=== PATIENT | male | born 1995 | race Caucasian/White ===

== ENCOUNTER 2024-07-25 14:43 | Emergency (ER) | payer OTHER, SELFPAY ==
[2024-07-25 14:45] VITALS: BP 135/85; PULSE 59; RESP 16; TEMP 36.6; O2SAT 100; BMI 21.9
--- NOTE | 2024-07-25 16:03 | ED.UPPEXIN ---
HPI - Extremity Injury (Upper) <Samantha Castle PA-C - Last Filed: 07/25/24 19:51> General Chief Complaint: Extremity Injury, Upper Stated Complaint: shoulder/back injury at work Time Seen by Provider: 07/25/24 16:03 Source: patient Mode of arrival: Ambulatory History of Present Illness HPI narrative: Mr. Gipson is a pleasant 29-year-old male with no reported past medical history who presents to the emergency department for bilateral shoulder pain after lifting overhead at work earlier today. Patient reports that he works in construction and was lifting at least 80 lb concrete over his head for 6 minutes when his shoulders gave out on him. Patient did not drop cement on himself or fall. However he has had bilateral anterior shoulder pain and bilateral scapular pain since this occurred at 11:00 a.m. this morning. Patient states the pain is also radiating down down the medial aspect of his right arm and this area feels intermittently numb. He denies any weakness in his arms or hands. He has pain when elevating his arms above 90?. He denies any neck or back pain. No difficulty ambulating. No chest pain or shortness of breath. He took a dose of ibuprofen at 11:00 a.m. this morning which did not not resolve the patent. Related Data Previous Rx's Medication Instructions Recorded cyclobenzaprine 5 mg tablet 5 mg PO TID PRN muscle spasm #12 07/25/24 tabs lidocaine 5 % topical patch 1 patch topical DAILY #15 ea 07/25/24 (Lidoderm) methylprednisolone 4 mg tablets in See Rx Instructions PO .COMPLEX 07/25/24 a dose pack (Medrol (Dashawn)) #21 ea Allergies Allergy/AdvReac Type Severity Reaction Status Date / Time diphenhydramine AdvReac Hallucinati Verified 07/25/24 15:03 [From Benadbebal] ng Review of Systems <Samantha Castle PA-C - Last Filed: 07/25/24 19:51> Review of Systems ROS Unobtainable: All systems reviewed & are unremarkable except as noted in HPI and below Patient History <Samantha Castle PA-C - Last Filed: 07/25/24 19:51> Social History Smoking Status: Current some day smoker Smoking Status: Current some day smoker alcohol intake frequency: holidays/special occasions only Substance Use Type: does not use Exam <Samantha Castle PA-C - Last Filed: 07/25/24 19:51> Narrative Exam Narrative: GENERAL: 29 year old patient appears stated age. Well-developed patient, in no acute distress. HEAD: Atraumatic. Normocephalic. EYES: Extraocular motions intact. No scleral icterus. No injection or drainage. ENT: Nose without bleeding, purulent drainage. Airway patent. NECK: Trachea midline. Cervical ROM intact. No midline cervical pain. CARDIOVASCULAR: Regular rate and rhythm. RESPIRATORY: ?Nonlabored respirations. ?Speaking in clear, full sentences. ?Clear to auscultation. Breath sounds equal bilaterally. No wheezes, rales, or rhonchi. ? EXTREMITIES: Tenderness to palpation of bilateral anterior shoulders and posterior superior scapula. Pain with abduction of shoulders greater than 90?. No deformities. Bilateral upper extremity strength intact. Sensation intact in the distribution of the median, radial, ulnar nerves bilaterally. Strong radial pulses. BACK: Nontender without deformity or crepitance. No flank tenderness. NEURO: AOx3. ?Clear speech. ?Moves all 4 extremities appropriately. Ambulates steady. Subjective numbness in distribution of right arm C8 however sensation to light touch is still intact. SKIN: No rash or erythema of visible areas Initial Vital Signs Initial Vital Signs: Vital Signs Temperature 97.9 F 07/25/24 14:45 Pulse Rate 59 L 07/25/24 14:45 Respiratory Rate 16 07/25/24 14:45 Blood Pressure 135/85 07/25/24 14:45 Pulse Oximetry 100 07/25/24 14:45 Oxygen Delivery Method Room Air 07/25/24 14:45 <Lashell Menendez MD - Last Filed: 07/26/24 08:27> Initial Vital Signs Initial Vital Signs: Vital Signs Temperature 97.9 F 07/25/24 14:45 Pulse Rate 59 L 07/25/24 14:45 Respiratory Rate 16 07/25/24 14:45 Blood Pressure 135/85 07/25/24 14:45 Pulse Oximetry 100 07/25/24 14:45 Oxygen Delivery Method Room Air 07/25/24 14:45 Course <Samantha Castle PA-C - Last Filed: 07/25/24 19:51> Orders Ordered: Discontinued Medications Acetaminophen (Acetaminophen 325 Mg Tablet) 975 mg PO NOW ONE Stop: 07/25/24 16:42 Last Admin: 07/25/24 16:46 Dose: 975 mg Documented By: LEAH Cyclobenzaprine HCl (Cyclobenzaprine 10 Mg Prepack) 1 bottle MISC DIRECTED ONE Stop: 07/25/24 19:02 Ibuprofen (Ibuprofen 400 Mg Tablet) 400 mg PO NOW ONE Stop: 07/25/24 16:42 Last Admin: 07/25/24 16:45 Dose: 400 mg Documented By: LEAH Vital Signs Vital signs: Vital Signs - 8 hr 07/25/24 14:45 07/25/24 18:18 Temperature 97.9 F Pulse Rate 59 L 59 L Respiratory Rate 16 16 Blood Pressure 135/85 117/70 Pulse Oximetry 100 100 Oxygen Delivery Method Room Air <Lashell Menendez MD - Last Filed: 07/26/24 08:27> Orders Ordered: Discontinued Medications Acetaminophen (Acetaminophen 325 Mg Tablet) 975 mg PO NOW ONE Stop: 07/25/24 16:42 Last Admin: 07/25/24 16:46 Dose: 975 mg Documented By: LEAH Cyclobenzaprine HCl (Cyclobenzaprine 10 Mg Prepack) 1 bottle MISC DIRECTED ONE Stop: 07/25/24 19:02 Ibuprofen (Ibuprofen 400 Mg Tablet) 400 mg PO NOW ONE Stop: 07/25/24 16:42 Last Admin: 07/25/24 16:45 Dose: 400 mg Documented By: LEAH Vital Signs Vital signs: Vital Signs - 8 hr 07/25/24 14:45 07/25/24 18:18 Temperature 97.9 F Pulse Rate 59 L 59 L Respiratory Rate 16 16 Blood Pressure 135/85 117/70 Pulse Oximetry 100 100 Oxygen Delivery Method Room Air MDM - Extremity Injury (Upper) <Samantha Castle PA-C - Last Filed: 07/25/24 19:51> Imaging Data CT Cervical Spine: Radiologist's Impression: PROCEDURE: CT CERVICAL SPINE WO CON INDICATIONS: pain shooting down R arm after lifting overhead TECHNIQUE: Noncontrast 3 mm thick sections acquired from the skull base to the T4 level. Sagittal and coronal reformats were then constructed. For radiation dose reduction, the following was used: automated exposure control, adjustment of mA and/or kV according to patient size. COMPARISON: None. FINDINGS: Image quality: Excellent. Bones: No fractures or dislocations. Visualized superior ribs are intact. Soft tissues: Prevertebral soft tissues are normal in thickness. No paravertebral hematomas. No apical pneumothoraces. IMPRESSION: No displaced fracture or traumatic subluxation. No significant degenerative change. Shoulder Xrays, Bilateral: Radiologist's Impression: PROCEDURE: XR SHOULDER LT MIN 2V INDICATIONS: BL shoulder pain after lifting overhead TECHNIQUE: 3 views of the shoulder were acquired. COMPARISON: [facility], , XR SHOULDER RT MIN 2V, 07/25/2024, 16:43. FINDINGS: Bones: No fractures or dislocations. No suspicious bony lesions. Visualized ribs appear intact. Soft tissues: No suspicious soft tissue calcifications. IMPRESSION: No acute bony abnormality. PROCEDURE: XR SHOULDER RT MIN 2V INDICATIONS: BL shoulder pain after lifting overhead TECHNIQUE: 3 views of the shoulder were acquired. COMPARISON: None. FINDINGS: Bones: No fractures or dislocations. No suspicious bony lesions. Visualized ribs appear intact. Soft tissues: No suspicious soft tissue calcifications. IMPRESSION: No acute bony abnormality. MDM Narrative Medical decision making narrative: 29-year-old male presents to the emergency room for bilateral shoulder pain radiating down the right arm after lifting heavy object above head. Differential diagnosis includes but is not limited to cervical radiculopathy, rotator cuff tear, muscle strain, muscle spasm, compression fracture, etc. On exam patient is in no acute distress, nontoxic appearing, not tachycardic or febrile. He has bilateral tenderness of the anterior shoulders and posterior scapula and pain with straight arm test but no weakness. He has subjective numbness in right C8 distribution however sensation intact to light touch and arms are bilaterally neurovascularly intact. We will proceed with x-ray imaging of both shoulders in addition to CT of cervical spine to rule out bony abnormality. We will treat with ibuprofen Tylenol. Both x-rays and CT cervical spine imaging are negative for any acute abnormalities. Suspect patient's symptoms are most related to muscle/soft tissue injury. He is describing the feeling of muscle spasms so we will trial a course of Flexeril in addition to a Medrol Dosepak given the right arm radiculopathy symptoms. I recommended patient avoid heavy lifting that exacerbates his pain. He was provided with a work note to rest for the next few days then return with light duty however he will need a primary care doctor or the orthopedic surgeon to evaluate him within the next week for further evaluation. I recommend he takes ibuprofen and/or Tylenol for pain in addition to his prescriptions. Risks of muscle relaxers were discussed. All questions answered, patient is stable for discharge home. Discharge Plan Departure Patient Disposition: Home Clinical Impression: Cervical radiculopathy Muscle strain, shoulder region Qualifiers: Encounter type: initial encounter Laterality: unspecified laterality Qualified Code(s): S46.919A - Strain of unspecified muscle, fascia and tendon at shoulder and upper arm level, unspecified arm, initial encounter Instructions: DI for Cervical Radiculopathy Activity Restrictions/Additional Instructions: Please take Ibuprofen (Motrin/Advil) or Acetaminophen (Tylenol) for pain. These are available over the counter. You may take Ibuprofen 600 mg every 8 hours with food for pain. You may also take Acetaminophen 650 mg every 4-6 hours for pain. Do not exceed 3000 mg of Tylenol a day as this can cause liver damage. Do not drink alcohol with either of these medications. Dear Mr. Gipson, Your diagnosis today is shoulder strain and cervical radiculopathy. Your x-rays and CT scan today were negative for any acute abnormalities. We are going to treat your muscle pain muscle relaxers and the pain radiating down your arm with a short course of steroids. Please rest, use heat therapy on sore muscles, and avoid lifting heavy until your pain resolves. If you have persistent pain, please follow up with an orthopedic surgeon for further evaluation. You may schedule an appointment with [facility] at [phone]. Please follow up with your primary care doctor within the next 2-3 days for ER follow-up. If you do not have a primary care doctor, you may call [phone] to schedule an appointment with a [facility] primary care doctor. IF YOU DEVELOP ANY NEW OR WORSENING SYMPTOMS, RETURN TO THE ER! Please read the attached instructions, they highlight more specific treatments and interventions for you at home. Thank you for letting me participate in your care, Samantha Castle PA-C Prescriptions: New cyclobenzaprine 5 mg tablet 5 mg PO TID PRN (Reason: muscle spasm) Qty: 12 0RF lidocaine [Lidoderm] 5 % adhesive patch,medicated 1 patch topical DAILY Qty: 15 0RF Rx Instructions: leave on most painful area for up to 12 hrs methylprednisolone [Medrol (Dashawn)] 4 mg tablets,dose pack See Rx Instructions .ROUTE .COMPLEX Qty: 21 0RF Rx Instructions: orally per package directions Stand Alone Forms: Patient Portal/API/Survey, Work Release Note ED Sign-out <Lashell Menendez MD - Last Filed: 07/26/24 08:27> Cosign ED Attending Cosignature Attestation: I was immediately available in the department for consultation throughout this patient's visit. Lashell Menendez MD
--- NOTE | 2024-07-25 16:41 | DI.RAD.S_ITS ---
PROCEDURE: XR SHOULDER LT MIN 2V INDICATIONS: BL shoulder pain after lifting overhead TECHNIQUE: 3 views of the shoulder were acquired. COMPARISON: [facility], CR, XR SHOULDER RT MIN 2V, 07/25/2024, 16:43. FINDINGS: Bones: No fractures or dislocations. No suspicious bony lesions. Visualized ribs appear intact. Soft tissues: No suspicious soft tissue calcifications. IMPRESSION: No acute bony abnormality. Dictated by: Emmanuel Gibbs M.D. on 07/25/2024 at 16:52 Approved by: Emmanuel Gibbs M.D. on 07/25/2024 at 16:53
--- NOTE | 2024-07-25 16:41 | DI.RAD.S_ITS ---
PROCEDURE: XR SHOULDER RT MIN 2V INDICATIONS: BL shoulder pain after lifting overhead TECHNIQUE: 3 views of the shoulder were acquired. COMPARISON: None. FINDINGS: Bones: No fractures or dislocations. No suspicious bony lesions. Visualized ribs appear intact. Soft tissues: No suspicious soft tissue calcifications. IMPRESSION: No acute bony abnormality. Dictated by: Emmanuel Gibbs M.D. on 07/25/2024 at 16:53 Approved by: Emmanuel Gibbs M.D. on 07/25/2024 at 16:53
[2024-07-25] MEDS: IBUPROFEN 400 MG TABLET PO (16:45)
[2024-07-25] MEDS: ACETAMINOPHEN 325 MG TABLET 975 MG PO (16:46)
--- NOTE | 2024-07-25 16:46 | DI.CT.S_ITS ---
PROCEDURE: CT CERVICAL SPINE WO CON INDICATIONS: pain shooting down R arm after lifting overhead TECHNIQUE: Noncontrast 3 mm thick sections acquired from the skull base to the T4 level. Sagittal and coronal reformats were then constructed. For radiation dose reduction, the following was used: automated exposure control, adjustment of mA and/or kV according to patient size. COMPARISON: None. FINDINGS: Image quality: Excellent. Bones: No fractures or dislocations. Visualized superior ribs are intact. Soft tissues: Prevertebral soft tissues are normal in thickness. No paravertebral hematomas. No apical pneumothoraces. IMPRESSION: No displaced fracture or traumatic subluxation. No significant degenerative change. Dictated by: Emmanuel Gibbs M.D. on 07/25/2024 at 17:17 Approved by: Emmanuel Gibbs M.D. on 07/25/2024 at 17:19
[2024-07-25 18:18] VITALS: BP 117/70; PULSE 59; RESP 16; O2SAT 100
== END 2024-07-25 19:20 | disposition home or self-care (01) ==
PROVIDERS: Emergency Provider Physician Assistant
DX: S46.912A Strain of unspecified muscle, fascia and tendon at shoulder and upper arm level, left arm, initial encounter (principal); S46.911A Strain of unspecified muscle, fascia and tendon at shoulder and upper arm level, right arm, initial encounter; X50.0XXA Overexertion from strenuous movement or load, initial encounter
CPT/HCPCS: 72125; 73030; 99283; 99284

== ENCOUNTER → 2024-09-20 11:19 | Outpatient (CLI) | payer OTHER, SELFPAY ==
--- NOTE | 2024-09-20 11:23 | DI.MRI.S_ITS ---
PROCEDURE: MR SHOULDER LT WO CON INDICATIONS: ACUTE PAIN OF BOTH SHOULDERS,WORK RELATED INJURY TECHNIQUE: Noncontrast oblique coronal T2 fast spin echo with fat saturation, oblique sagittal T1 spin echo and T2 fast spin echo with fat saturation, axial T1 spin echo and T2 fast spin echo with fat saturation through the shoulder. COMPARISON: [facility], CR, XR SHOULDER RT MIN 2V, 07/25/2024, 16:43. FINDINGS: Image quality: Excellent. Rotator cuff: Tendinosis and low-grade articular surface partial-thickness tear involving distal supraspinatus at its insertion on the humeral head is seen. Distal infraspinatus tendinosis is seen. The subscapularis tendon is intact. No full-thickness rotator cuff tendon rupture. Sagittal images demonstrate no significant rotator cuff muscle atrophy. Bones and bursae: No bone marrow contusions or fractures. No acromioclavicular joint degeneration. Type 1 acromion an os acromiale. No pathologic subacromial-subdeltoid or subcoracoid bursal fluid is present. Capsule and soft tissues: Labrum is grossly intact. The long head of the biceps tendon demonstrates normal location and morphology. The rotator interval appears normal, without fibrosis. The coracohumeral ligament is normal in thickness. IMPRESSION: 1. Very low-grade articular surface partial-thickness tear involving distal supraspinatus at its insertion on the humeral head. Distal infraspinatus tendinosis. No rotator cuff tendon rupture or muscle atrophy. 2. No marrow edema. No fracture or dislocation. No significant joint effusion or subacromial subdeltoid bursal fluid. 3. No evidence of focal labral tear. Dictated by: Rajinder Robb M.D. on 09/20/2024 at 12:49 Approved by: Rajinder Robb M.D. on 09/20/2024 at 14:06
--- NOTE | 2024-09-20 11:23 | DI.MRI.S_ITS ---
PROCEDURE: MR SHOULDER RT WO CON INDICATIONS: ACUTE PAIN OF BOTH SHOULDERS,WORK RELATED INJURY TECHNIQUE: Noncontrast oblique coronal T2 fast spin echo with fat saturation, oblique sagittal T1 spin echo and T2 fast spin echo with fat saturation, axial T1 spin echo and T2 fast spin echo with fat saturation through the shoulder. COMPARISON: [facility], MR, MR SHOULDER LT WO CON, 09/20/2024, 11:46. FINDINGS: Image quality: Excellent. Rotator cuff: Low-grade articular and bursal surface partial thickness tear involving distal supraspinatus at its insertion on the humeral head is seen extending to musculotendinous junction. Distal infraspinatus tendinosis is seen. The subscapularis tendon is intact. No full-thickness rotator cuff tendon rupture. Sagittal images demonstrate no significant rotator cuff muscle atrophy. Bones and bursae: No bone marrow contusions or fractures. No acromioclavicular joint degeneration. Type 1 acromion, without an os acromiale. No pathologic subacromial-subdeltoid or subcoracoid bursal fluid is present. Capsule and soft tissues: Subtle signal abnormality and fraying involving superior anterior glenoid labrum is seen suggestive of superior anterior labral tear. The long head of the biceps tendon demonstrates normal location and morphology. The rotator interval appears normal, without fibrosis. The coracohumeral ligament is normal in thickness. IMPRESSION: 1. Low-grade articular and bursal surface partial thickness tear involving distal supraspinatus extending to musculotendinous junction. Distal infraspinatus tendinosis. No full-thickness rotator cuff tendon rupture. 2. No marrow edema. No fracture or dislocation. No significant joint effusion or subacromial subdeltoid bursal fluid. 3. Suggestion of subtle superior anterior right glenoid labral tear. Dictated by: Rajinder Robb M.D. on 09/20/2024 at 14:06 Approved by: Rajinder Robb M.D. on 09/20/2024 at 14:31
== END ==
PROVIDERS: PCP Family Medicine; Referring Provider Family Medicine; Visit Provider Family Medicine
DX: S46.011A Strain of muscle(s) and tendon(s) of the rotator cuff of right shoulder, initial encounter (principal); S46.012A Strain of muscle(s) and tendon(s) of the rotator cuff of left shoulder, initial encounter; M25.511 Pain in right shoulder; M25.512 Pain in left shoulder; M79.601 Pain in right arm; M79.602 Pain in left arm; R29.898 Other symptoms and signs involving the musculoskeletal system; R20.2 Paresthesia of skin; X58.XXXA Exposure to other specified factors, initial encounter; Y99.0 Civilian activity done for income or pay
CPT/HCPCS: 73221